=== PATIENT | male | born 1945 ===

== ENCOUNTER → 2020-12-02 10:21 | Outpatient (CLI) | payer MEDICARE, SELFPAY ==
[2020-12-02 19:36] LABS: Alanine Aminotransferase 25 IU/L (<50); Albumin 4.7 g/dL (3.5-5.0); Albumin Globulin Ratio 1.6 (1.0-2.8); Alkaline Phosphatase 69 U/L (38-126); Aspartate Aminotransferase 36 IU/L (17-59); BUN Creatinine Ratio 24.8 (6-22); Bilirubin Total 0.8 mg/dL (0.2-1.3); Blood Urea Nitrogen 36 mg/dL (9-20); Calcium 9.7 mg/dL (8.4-10.2); Carbon Dioxide 21 mmol/L (22-32); Chloride 102 mmol/L (98-107); Estimated Glomerular Filt Rate 47.6 mL/min (>60); Globulin 2.9 g/dL (1.7-4.1); Glucose 100 mg/dL (80-110); HEMOLYSIS < 15 (0-50); Sodium 133 mmol/L (137-145); Total Protein 7.6 g/dL (6.3-8.2)
[2020-12-02 19:52] LABS: Potassium 5.3 mmol/L (3.4-5.1)
== END ==
PROVIDERS: Family Medicine; PCP Family Medicine; Visit Provider Family Medicine
DX: N18.31 Chronic kidney disease, stage 3a (principal)
CPT/HCPCS: 80053

== ENCOUNTER 2021-01-29 10:19 | Emergency (ER) | payer MEDICARE, SELFPAY ==
[2021-01-29] VITALS (19 sets, daily range): BP systolic 128–174; BP diastolic 59–98; PULSE 61–81; RESP 18–45; TEMP 36.9; O2SAT 97–100; BMI 30.1
--- NOTE | 2021-01-29 10:28 | DI.RAD.S_ITS ---
PROCEDURE: XR CHEST 1V INDICATIONS: chest pain TECHNIQUE: One view of the chest was acquired. COMPARISON: None. FINDINGS: Surgical changes and devices: None. Lungs and pleura: Lungs are clear. No pleural effusions or pneumothorax. Mediastinum: Mediastinal contours appear normal. Heart size is mildly enlarged. Bones and chest wall: No suspicious bony lesions. Overlying soft tissues appear unremarkable. IMPRESSION: No acute pulmonary process. Dictated by: Vadnana Butler M.D. on 01/29/2021 at 11:21 Approved by: Vandana Butler M.D. on 01/29/2021 at 11:21
[2021-01-29 10:36] LABS: Add Manual Diff / Slide Review NO; Basophils Absolute Auto 100 /uL (0-100); Basophils Percent Auto 0.8 % (0-2); Eosinophils Absolute Auto 300 /uL (0-450); Eosinophils Percent Auto 3.7 % (2-4); Hematocrit 33.1 % (41-53); Lymphocytes Absolute Auto 2000 /uL (1100-4500); Lymphocytes Percent Auto 26.7 % (25-40); Mean Corpuscular HGB Conc 33.3 % (30-36); Mean Corpuscular Hemoglobin 29.1 PG (26-34); Mean Corpuscular Volume 87.5 fL (80-100); Monocytes Absolute Auto 800 /uL (0-900); Monocytes Percent Auto 10.2 % (3-14); Neutrophils Absolute Auto 4400 /uL (1500-7000); Neutrophils Percent Auto 58.6 % (50-75); Platelet Count 266 X10^3/uL (150-400); Red Blood Cell Count 3.78 X10^6/uL (4.5-5.9); Red Cell Distribution Width 13.3 % (11.6-14.8); White Blood Cell Count 7.6 X10^3/uL (4.5-11.0)
[2021-01-29] MEDS: ASPIRIN 81 MG CHEW TAB 324 MG PO (10:42)
[2021-01-29 10:44] LABS: Alanine Aminotransferase 29 IU/L (<50); Albumin 4.7 g/dL (3.5-5.0); Albumin Globulin Ratio 1.4 (1.0-2.8); Alkaline Phosphatase 67 U/L (38-126); Aspartate Aminotransferase 36 IU/L (17-59); BUN Creatinine Ratio 21.6 (6-22); Bilirubin Total 0.5 mg/dL (0.2-1.3); Blood Urea Nitrogen 33 mg/dL (9-20); Calcium 9.6 mg/dL (8.4-10.2); Carbon Dioxide 22 mmol/L (22-32); Chloride 105 mmol/L (98-107); Creatine Kinase 114 U/L (55-170); Estimated Glomerular Filt Rate 44.7 mL/min (>60); Globulin 3.4 g/dL (1.7-4.1); Glucose 94 mg/dL (80-110); HEMOLYSIS < 15 (0-50); Lipase 257 U/L (23-300); Potassium 5.1 mmol/L (3.4-5.1); Sodium 135 mmol/L (137-145); Total Protein 8.1 g/dL (6.3-8.2)
[2021-01-29] MEDS: NITROGLYCERIN 0.4 MG SL TAB SL (10:50)
[2021-01-29 10:57] LABS: Troponin I < 0.012 ng/mL (0.01-0.034)
[2021-01-29 11:00] LABS: CKMB % Relative Index 1.6 % (1.5-5.0); Creatine Kinase MB 1.81 ng/mL (<2.37)
--- NOTE | 2021-01-29 11:06 | PC.NURSE ---
after sl nitro cp improved to 0/10, cp then began to slowly return at 1104 MD at bs orders obtained pt to get nitropaste and heparin gtt. second piv placed.
[2021-01-29] MEDS: NITROGLYCERIN OINT 1 INCH/GM OINT...G. TOP (11:08)
--- NOTE | 2021-01-29 11:11 | ED.CHESTPAIN ---
HPI - Chest Pain General Chief Complaint: Chest Pain Stated Complaint: chest pains Time Seen by Provider: 01/29/21 10:45 Source: patient and family Mode of arrival: Ambulatory Limitations: no limitations History of Present Illness HPI narrative: 75-year-old gentleman history of hypertension and a distant history of atrial fibrillation status post ablation 15 years ago and no other cardiac issues presents with chest pain. [place] began having left-sided chest pain that was stabbing that did not resolve and continued to a squeezing type pain [place] was [place] the [place]. He does not describe dyspnea or diaphoresis. He notes that he is otherwise quite active and typically walks 4-5 miles a day up and down hills without any chest pain or dyspnea. [place] On arrival in the emergency department the chest pain had essentially resolved but at rest he has had recurrence. That recurrence resolved completely with a single nitroglycerin. Related Data Allergies Allergy/AdvReac Type Severity Reaction Status Date / Time simvastatin Allergy Severe Muscle Pain Verified 01/29/21 10:43 Review of Systems Review of Systems Narrative: Pertinent positive and negative findings as per HPI Remainder of review of systems is otherwise unremarkable for Constitutional: Fevers, chills, weakness ENT: No sore throat, neck pain, ear pain Respiratory: Cough, wheeze, dyspnea GI: Nausea, vomiting, diarrhea, change in bowel habits, black or bloody stools : Dysuria, hematuria, flank pain MS: Muscle weakness, numbness, joint swelling or warmth Skin: Rashes, nonhealing lesions Neuro: Syncope, dizziness, tingling Patient History Medical History (Updated 01/29/21 @ 12:37 by Patricia Perez MD) Hypertension Paroxysmal atrial fibrillation Social History Smoking Status: Never smoker Smoking Status: Never smoker alcohol intake frequency: 0-2 drinks per day Alcohol type: wine Substance Use Type: does not use Exam Initial Vital Signs Initial Vital Signs: Vital Signs Temperature 98.4 F 01/29/21 10:20 Pulse Rate 78 01/29/21 10:20 Respiratory Rate 18 01/29/21 10:20 Blood Pressure 174/82 H 01/29/21 10:20 Pulse Oximetry 100 01/29/21 10:20 Course Orders Ordered: ED Orders 01/29/21 10:25 Complete Blood Count AUTO DIFF Stat Comprehensive Metabolic Panel Stat Lipase Stat Troponin & CK Cardiac Panel Stat 01/29/21 10:28 XR chest 1V Stat EKG-12 Lead Stat 01/29/21 11:30 COVID19 -Nasal swab/Pre-Proc Stat 01/29/21 11:39 EKG-12 Lead Stat 01/29/21 12:40 Troponin I Stat Heparin Sodium/Dextrose (Heparin Drip) 25,000 unit in 500 mls @ 20 mls/hr IV CONT RADHA; Protocol Last Admin: 01/29/21 11:22 Dose: 1,000 units/hr, 20 mls/hr Documented by: LAURI Nitroglycerin (Nitroglycerin) 50 mg in 250 mls @ 1.5 mls/hr IV TITRATE RADHA; Protocol Last Titration: 01/29/21 12:42 Dose: 10 mcg/min, 3 mls/hr Documented by: Admin: 01/29/21 12:25 Dose: 5 mcg/min, 1.5 mls/hr Documented by: LAURI Morphine Sulfate (Morphine 2 Mg/Ml Inj) 2 mg IV Q5MIN PRN PRN Reason: Chest Pain Last Admin: 01/29/21 12:41 Dose: 2 mg Documented by: LAURI Nitroglycerin (Nitroglycerin 0.4 Mg Sl Tab) 0.4 mg SL [id number] PRN PRN Reason: Chest Pain Last Admin: 01/29/21 10:50 Dose: 0.4 mg Documented by: LACY Discontinued Medications Aspirin (Aspirin 81 Mg Chew Tab) 324 mg PO NOW ONE Stop: 01/29/21 10:29 Last Admin: 01/29/21 10:42 Dose: 243 mg Documented by: LACY Heparin Sodium (Porcine) (Heparin 5,000 Unit/Ml Vial) 5,000 unit IV NOW ONE Stop: 01/29/21 11:12 Last Admin: 01/29/21 11:21 Dose: 5,000 unit Documented by: LAURI Nitroglycerin (Nitroglycerin Oint 1 Inch/Gm Oint...G.) 0.5 inch TOP NOW ONE Stop: 01/29/21 11:12 Last Admin: 01/29/21 11:42 Dose: Not Given Documented by: LAURI Vital Signs Vital signs: Vital Signs - 8 hr 01/29/21 10:20 01/29/21 10:23 01/29/21 10:30 Temperature 98.4 F Pulse Rate 78 81 73 Respiratory Rate 18 24 Blood Pressure 174/82 H 159/76 H Pulse Oximetry 100 99 100 01/29/21 10:50 01/29/21 10:51 01/29/21 10:57 Temperature Pulse Rate 70 70 77 Respiratory Rate 45 H 45 H Blood Pressure 159/76 H 155/73 H 153/98 H Pulse Oximetry 99 98 01/29/21 11:00 01/29/21 11:08 01/29/21 11:11 Temperature Pulse Rate 73 70 67 Respiratory Rate 36 H 20 Blood Pressure 160/75 H 160/75 H Pulse Oximetry 97 98 01/29/21 11:14 01/29/21 11:30 01/29/21 11:45 Temperature Pulse Rate 66 65 62 Respiratory Rate 24 19 20 Blood Pressure 136/67 140/72 145/70 H Pulse Oximetry 98 98 98 01/29/21 12:00 01/29/21 12:15 01/29/21 12:25 Temperature Pulse Rate 64 64 69 Respiratory Rate 24 21 Blood Pressure 142/69 H 128/68 128/68 Pulse Oximetry 98 98 01/29/21 12:30 01/29/21 12:38 Temperature Pulse Rate 61 61 Respiratory Rate 25 H Blood Pressure 128/61 146/64 H Pulse Oximetry 99 99 MDM - Chest Pain Medical Records Data Attestation: I reviewed the patient's medical records. Lab Data Attestation: I reviewed the patient's lab results. Result diagrams: 01/29/21 10:25 01/29/21 10:25 Labs: Lab Results 01/29/21 01/29/21 01/29/21 Range/Units 10:25 10:25 11:30 WBC 7.6 (4.5-11.0) X10^3/uL RBC 3.78 L (4.5-5.9) X10^6/uL Hgb 11.0 L (13.5-17.5) g/dL Hct 33.1 L (41-53) % MCV 87.5 (80-100) fL MCH 29.1 (26-34) PG MCHC 33.3 (30-36) % RDW 13.3 (11.6-14.8) % Plt Count 266 (150-400) X10^3/uL Neut % (Auto) 58.6 (50-75) % Lymph % (Auto) 26.7 (25-40) % [place] % (Auto) 10.2 (3-14) % Eos % (Auto) 3.7 (2-4) % Baso % (Auto) 0.8 (0-2) % Neut # (Auto) 4400 (9186-4977) /uL Lymph # (Auto) 2000 (0598-4442) /uL [place] # (Auto) 800 (0-900) /uL Eos # (Auto) 300 (0-450) /uL Baso # (Auto) 100 (0-100) /uL Sodium 135 L (137-145) mmol/L Potassium 5.1 (3.4-5.1) mmol/L Chloride 105 (98-107) mmol/L Carbon Dioxide 22 (22-32) mmol/L BUN 33 H (9-20) mg/dL Creatinine 1.53 H (0.66-1.25) mg/dL Estimated GFR 44.7 L (>60) mL/min BUN/Creatinine Ratio 21.6 (6-22) Glucose 94 (80-110) mg/dL Calcium 9.6 (8.4-10.2) mg/dL Total Bilirubin 0.5 (0.2-1.3) mg/dL AST 36 (17-59) IU/L ALT 29 (<50) IU/L Alkaline Phosphatase 67 (38-126) U/L Total Creatine Kinase 114 (55-170) U/L CK-MB (CK-2) 1.81 (<2.37) ng/mL CK-MB (CK-2) Rel Index 1.6 (1.5-5.0) % Troponin I < 0.012 (0.01-0.034) ng/mL Total Protein 8.1 (6.3-8.2) g/dL Albumin 4.7 (3.5-5.0) g/dL Globulin 3.4 (1.7-4.1) g/dL Albumin/Globulin Ratio 1.4 (1.0-2.8) Lipase 257 (23-300) U/L SARS-CoV-2 (PCR) Negative (Negative) Imaging Data Chest x-ray: Radiologist's Impression: FINDINGS: Surgical changes and devices: None. Lungs and pleura: Lungs are clear. No pleural effusions or pneumothorax. Mediastinum: Mediastinal contours appear normal. Heart size is mildly enlarged. Bones and chest wall: No suspicious bony lesions. Overlying soft tissues appear unremarkable. IMPRESSION: No acute pulmonary process. Dictated by: Vandana Butler M.D. on 01/29/2021 at 11:21 ECG Data Attestation: I personally reviewed and interpreted this ECG as follows: Interpretation: 10:28 Sinus rhythm at a rate of 77 Nonspecific T-wave abnormalities without prior comparisons Normal axis, normal intervals 11:44 Sinus rhythm with sinus arrhythmia. Rate is 65 Subtle changes in the deflection of the ST segments V2 through V5 1225 Sinus rhythm with PACs at a rate of 64 No new changes EKG just prior to transport (heparin drip, nitro drip, IV morphine, continued chest pain) Rate of 68 with no new changes MDM Narrative Medical decision making narrative: 75-year-old gentleman with acute onset left-sided chest pain walking up a gentle incline earlier today. This is continued to wax and wane over the course of the day. Initially resolved with a single nitro but returned rest. Heparin drip was started and Nitropaste was placed again, resolution of symptoms and then return. He is currently on heparin drip, pain is back to a 4/10. With an inch of nitropaste in place, this pain has resolved completely if he has recurrent pain will need to begin nitro drip. Initially EKG is not meeting ST elevation criteria. Initial troponin is unremarkable. Second is due to be drawn at 12:30 p.m.. Will repeat EKG and review care with Cardiology [address] Adame. Suggested direct transfer to [facility] for further evaluation to decide if he goes to the floor or directly to manufacturing lab technician. Will contact [facility] ER providers so that they are aware. Repeat EKG does not show dramatic changes. Second troponin is drawn but results are not yet available 1233 Dr Gil is aware of plans and accepts ER-ER transfer. 1252 transport available report is given. Patient continues to have pain at this point but is not diaphoretic or dyspneic. Critical Care Time Critical Care Time Critical Care Time: Yes Total Critical Care Time: 32 Attestation: Critical care time is separate from other billable procedures. This critical care time includes consultation with family and other consulting doctors, review of records, and interpretation of data from labs, EKGs and imaging as well as managements of progressive symptoms of acute coronary syndrome along with pieces of coordination between multiple [facility] Discharge Plan Departure [facility] Disposition: [facility] Clinical Impression: Unstable angina pectoris Referrals: Nikunj Ayala MD [Primary Care Provider] -
[2021-01-29] MEDS: HEPARIN 5,000 UNIT/ML VIAL 5000 UNIT IV (11:21)
[2021-01-29] MEDS: HEPARIN DRIP 25,000 UNIT/500 ML IV.SOLN 20 UNIT IV (11:22)
--- NOTE | 2021-01-29 11:32 | PC.NURSE ---
Chest pain increased after nitro paste applied. Md notified. Will start Nitro drip, vo to remove Nitro paste 15 min after start of drip.
[2021-01-29 11:48] LABS: COVID19 -Nasal RAPID Negative (Negative)
--- NOTE | 2021-01-29 11:48 | PC.NURSE ---
Holding Nitro drip d/t pain resolution.
[2021-01-29] MEDS: NITROGLYCERIN 50 MG/250 ML INFUS..BTL IV (12:25)
--- NOTE | 2021-01-29 12:26 | PC.NURSE ---
Answered [facility], pt reports pain increased to 7/[address] Perez updated. Nitro drip started.
[2021-01-29] MEDS: MORPHINE 2 MG/ML INJ IV (12:41)
--- NOTE | 2021-01-29 12:50 | PC.NURSE ---
Nitro paste removed
--- NOTE | 2021-01-29 12:54 | PC.NURSE ---
EMS at bedside, report given and pt ready for transfer. Pt reports pain reduction after titration of nitro and morphine.
[2021-01-29 13:08] LABS: Troponin I < 0.012 ng/mL (0.01-0.034)
== END 2021-01-29 13:06 | disposition short-term general hospital (02) ==
PROVIDERS: Emergency Provider Emergency Medicine; PCP Family Medicine
DX: I20.0 Unstable angina (principal); R07.9 Chest pain, unspecified; Z20.822 Contact with and (suspected) exposure to COVID-19
CPT/HCPCS: 36415; 71045; 80053; 82550; 82553; 83690; 84484; 85025; 87635; 93005; 93010; 96365; 96366; 96367; 96375; 99284; 99291; C9803; J1644; J2270

== ENCOUNTER → 2021-04-02 10:32 | Outpatient (CLI) | payer MEDICARE, SELFPAY ==
[2021-04-02 20:01] LABS: BUN Creatinine Ratio 16.3 (6-22); Blood Urea Nitrogen 24 mg/dL (9-20); Calcium 9.7 mg/dL (8.4-10.2); Carbon Dioxide 19 mmol/L (22-32); Chloride 105 mmol/L (98-107); Estimated Glomerular Filt Rate 46.8 mL/min (>60); Glucose 81 mg/dL (80-110); HEMOLYSIS < 15 (0-50); Potassium 5.3 mmol/L (3.4-5.1); Sodium 136 mmol/L (137-145)
== END ==
PROVIDERS: PCP Family Medicine; Visit Provider Family Medicine
DX: E87.1 Hypo-osmolality and hyponatremia (principal)
CPT/HCPCS: 80048

== ENCOUNTER → 2023-07-11 12:02 | Outpatient (CLI) | payer MEDICARE, SELFPAY ==
[2023-07-11 19:31] LABS: Albumin 4.5 g/dL (3.5-5.0); BUN Creatinine Ratio 22.1 (6-22); Blood Urea Nitrogen 36 mg/dL (9-20); Calcium 9.4 mg/dL (8.4-10.2); Carbon Dioxide 23 mmol/L (22-32); Chloride 106 mmol/L (98-107); Estimated Glomerular Filt Rate 43 mL/min (>60); Glucose 93 mg/dL (80-110); HEMOLYSIS < 15 (0-50); Phosphorous 3.5 mg/dL (2.3-3.7); Potassium 4.8 mmol/L (3.4-5.1); Sodium 139 mmol/L (137-145)
== END ==
PROVIDERS: PCP Physician Assistant; Visit Provider Internal Medicine
DX: E87.5 Hyperkalemia (principal)
CPT/HCPCS: 80069

== ENCOUNTER → 2024-01-31 14:27 | Outpatient (CLI) | payer MEDICARE, SELFPAY ==
[2024-01-31 21:00] LABS: Albumin 4.2 g/dL (3.5-5.0); BUN Creatinine Ratio 20.6 (6-22); Blood Urea Nitrogen 43 mg/dL (9-20); Calcium 9.6 mg/dL (8.4-10.2); Carbon Dioxide 28 mmol/L (22-32); Chloride 104 mmol/L (98-107); Estimated Glomerular Filt Rate 32 mL/min (>60); Glucose 101 mg/dL (80-110); HEMOLYSIS < 15 (0-50); Phosphorous 4.3 mg/dL (2.3-3.7); Potassium 5.2 mmol/L (3.4-5.1); Sodium 134 mmol/L (137-145)
== END ==
PROVIDERS: Internal Medicine Cardiovascular Disease
DX: N17.9 Acute kidney failure, unspecified (principal); R73.9 Hyperglycemia, unspecified
CPT/HCPCS: 80069; 83036

== ENCOUNTER → 2024-04-12 14:17 | Outpatient (CLI) | payer MEDICARE, SELFPAY ==
[2024-04-12 19:31] LABS: Albumin 4.5 g/dL (3.5-5.0); BUN Creatinine Ratio 19.2 (6-22); Blood Urea Nitrogen 54 mg/dL (9-20); Calcium 9.9 mg/dL (8.4-10.2); Carbon Dioxide 25 mmol/L (22-32); Chloride 96 mmol/L (98-107); Estimated Glomerular Filt Rate 22 mL/min (>60); Glucose 104 mg/dL (80-110); HEMOLYSIS < 15 (0-50); Phosphorous 4.2 mg/dL (2.3-3.7); Sodium 132 mmol/L (137-145)
[2024-04-12 20:25] LABS: Potassium 4.8 mmol/L (3.4-5.1)
== END ==
PROVIDERS: Visit Provider Internal Medicine
DX: N17.9 Acute kidney failure, unspecified (principal)
CPT/HCPCS: 80069